=== PATIENT | male | born 1960 | race Caucasian/White ===

== ENCOUNTER 2017-01-16 09:40 | Outpatient (CLI) | payer MEDICARE ==
[2017-01-16 10:41] LABS: Blood Urea Nitrogen 6 mg/dL (9-20)
--- NOTE | 2017-01-16 12:00 | Cat Scan Report ---
CT CHEST, ABDOMEN AND PELVIS WITH CONTRAST INDICATION: Breast cancer. COMPARISON: None similar at this institution. FINDINGS: Chest, abdomen and pelvis CT performed following intravenous administration of 100 cc of Omnipaque 300. CHEST: Bilateral pulmonary metastatic masses noted, the largest approximately 8.1 x 7 x 7.2 cm in the right lower lobe medially with intrinsic heterogeneity/numerous hypodense areas as also air-filled structures. It extends from the hilum to the lung base. Small right pleural effusion also seen. Multiple left lung nodules/masses also seen, at least 5 small in the left upper lobe and the lingula measuring up to 0.9 cm, axial image 150 while the largest in the left lower lobe, just above the diaphragm is approximately 3.5 x 2.7 cm, axial image 168, series 2. Subcarinal lymph nodes measure up to 1.6 cm as on axial image 109. Few small mediastinal/pretracheal/AP window lymph nodes also noted. Largest elongated AP window lymph node is 2.9 x 0.8 cm, axial image 81. Patent central airway, though few right lower lobe bronchi medially may be obliterated. Mild right upper lobe chronic changes posteriorly with fibrosis/mild bronchiectasis, possibly postradiation. Unremarkable heart and great vessels. No pericardial effusion. Left thyroid lobe slightly more prominent than the right, though overall size within normal limits. Right axillary surgical clips with possible right mastectomy. No significant axillary lymphadenopathy. Mild distal esophageal prominence. Right hemidiaphragm mildly elevated. ABDOMEN: Liver, spleen, gallbladder, pancreas, adrenals, nonaneurysmal abdominal aorta, IVC and kidneys within normal limits. No ascites or significant adenopathy. Few indeterminate left renal hypodensities, the largest 0.9 cm inferomedially, axial image 402, series 2. Nonopacified GI tract evaluation limited, though grossly nonobstructive. Mild ascending colon stool. PELVIS: Rectosigmoid stool. Right inferolateral urinary bladder aspect asymmetrically partially extends towards the right groin as on axial image 561, series 2. Normal remainder urinary bladder, seminal vesicles and the prostate. No free fluid or significant adenopathy. Possible old, incompletely healed right sixth rib fracture laterally, axial image 138, series 2. Mild multilevel spinal degenerative changes/spurring. CONCLUSION: 1. Bilateral pulmonary metastatic masses/nodules, largest in the right lower lobe, as detailed above. Subcarinal/mediastinal lymph nodes also noted in this patient with probable right mastectomy, as described. Please correlate. 2. No abdomen or pelvic CT metastases with small right pleural fluid, distal esophageal air-filled prominence and few other incidental findings noted, as above. Thank you for the opportunity to participate in this patient's care.
== END 2017-01-16 09:41 | disposition home or self-care (01) ==
LOC: CT 09:40
PROVIDERS: ATTEND Internal Medicine Hematology
DX: C78.01 Secondary malignant neoplasm of right lung (principal); C78.02 Secondary malignant neoplasm of left lung; C50.929 Malignant neoplasm of unspecified site of unspecified male breast; R91.8 Other nonspecific abnormal finding of lung field; J90 Pleural effusion, not elsewhere classified; J98.6 Disorders of diaphragm; M47.899 Other spondylosis, site unspecified
CPT/HCPCS: 36415; 71260; 74177; 82565; 84520; Q9967

== ENCOUNTER 2017-07-08 15:53 | Emergency (ER) | payer MEDICARE ==
[2017-07-08 16:08] VITALS: BP 104/67
[2017-07-08 16:47] LABS: BUN/Creatinine Ratio 18; Blood Urea Nitrogen 16 mg/dL (9-20); Calcium 8.5 mg/dL (8.4-10.2); Hemolysis Index 3
[2017-07-08 17:05] LABS: Basophils # (Auto) 0.1 K/mm3 (0.0-0.1); Basophils % (Auto) 0.6 % (0.0-1.8); Hematocrit 38.2 % (35.5-45.6); Hemoglobin 12.1 gm/dl (11.8-15.2); Mean Corpuscular HGB Conc 32 % (32-34); Mean Corpuscular Volume 78 fl (84-94); Monocytes # (Auto) 1.4 K/mm3 (0.0-0.8); Monocytes % (Auto) 15.5 % (0.0-7.3); Platelet Count 333 K/mm3 (140-440); Red Blood Count 4.93 M/mm3 (3.65-5.03); Red Cell Distribution Width 18.6 % (13.2-15.2)
[2017-07-08 17:09] LABS: Mean Corpuscular Hemoglobin 25 pg (28-32)
--- NOTE | 2017-07-08 18:16 | XRay Report ---
FINAL REPORT PROCEDURE: XR CHEST ROUTINE 2V TECHNIQUE: PA and lateral chest radiographs were obtained. CPT 37893 HISTORY: shortness of breath COMPARISON: No prior studies are available for comparison. FINDINGS: Heart: Normal. Mediastinum/Vessels: Prominent central vessels. Lungs/Pleural space: There is a circumscribed opacity measuring up to 4 centimeters in the left lower lobe, with adjacent nodular densities measuring up to 11 millimeters. No effusion or pneumothorax is seen. Bony thorax: No acute osseous abnormality. Other: Right MediPort catheter tip is at the cavoatrial junction IMPRESSION: Left lower lobe opacities may be related to pulmonary masses or infiltrates. Recommend further evaluation with chest CT if not already performed.
[2017-07-08] MEDS ORDERED: NACL ONE (20:49)
== END 2017-07-08 21:05 | disposition left against medical advice (07) ==
LOC: ED 15:53
DX: R05 Cough (principal); R09.81 Nasal congestion; Z53.21 Procedure and treatment not carried out due to patient leaving prior to being seen by health care provider
CPT/HCPCS: 36415; 71020; 80048; 85025; 87040

== ENCOUNTER 2017-07-11 15:51 | Emergency (ER) | payer MEDICARE ==
[2017-07-11 17:55] LABS: Basophils # (Auto) 0.1 K/mm3 (0.0-0.1); Basophils % (Auto) 0.5 % (0.0-1.8); Hematocrit 37.5 % (35.5-45.6); Hemoglobin 12.3 gm/dl (11.8-15.2); Lymphocytes # (Auto) 2.9 K/mm3 (1.2-5.4); Lymphocytes % (Auto) 16.7 % (13.4-35.0); Mean Corpuscular HGB Conc 33 % (32-34); Mean Corpuscular Volume 76 fl (84-94); Monocytes # (Auto) 1.6 K/mm3 (0.0-0.8); Monocytes % (Auto) 9.1 % (0.0-7.3); Platelet Count 246 K/mm3 (140-440); Red Blood Count 4.93 M/mm3 (3.65-5.03); Red Cell Distribution Width 18.9 % (13.2-15.2)
[2017-07-11 18:07] LABS: Mean Corpuscular Hemoglobin 25 pg (28-32)
[2017-07-11 18:14] LABS: BUN/Creatinine Ratio 14; Blood Urea Nitrogen 11 mg/dL (9-20); Calcium 8.6 mg/dL (8.4-10.2); Hemolysis Index 15
[2017-07-11] MEDS ORDERED: NACL 0.9% 1000 ML 1,000 ML IV ONE (23:55)
[2017-07-12] MEDS ORDERED: NACL ONE (00:27)
[2017-07-12] MEDS ORDERED: ROCEPHIN/NS 1 GM/50 ML 1 GM/50 ML BAG IV ONE (01:47)
[2017-07-12] MEDS ORDERED: ROCEPHIN 1 GM in NACL 0.9% 20 ML IV ONE (02:00)
--- NOTE | 2017-07-12 02:00 | Emergency Department Report ---
ED Shortness of Breath HPI - General Chief Complaint: Dyspnea/Respdistress Stated Complaint: SICK Time Seen by Provider: 07/11/17 23:29 Source: patient Mode of arrival: Ambulatory Limitations: No Limitations - History of Present Illness Initial Comments: Patient with breast cancer that is metastatic to the lungs on chemotherapy. He has been treating this for over a year but for a week has been SOB with a cough. MD Complaint: shortness of breath -: Gradual, week(s) (1) Severity: moderate Pain Scale: 7 Quality: sharp Consistency: intermittent Improves With: oxygen, rest Worsens With: movement, inspiration Known History Of: other (metastatic breast cancer to the lungs.) Context: recent illness Associated Symptoms: fever, cough, sputum production Treatments Prior to Arrival: none - Related Data Previous Rx's Medication Instructions Recorded Last Taken Type Amoxicillin/Potassium Clav 1 each PO BID 20 Days #10 tablet 07/12/17 Unknown Rx [Augmentin 875-125 Tablet] Allergies Allergy/AdvReac Type Severity Reaction Status Date / Time No Known Allergies Allergy Verified 07/08/17 16:03 ED Review of Systems ROS: Stated complaint: SICK Other details as noted in HPI Constitutional: chills, fever, malaise Eyes: denies: eye pain, eye discharge, vision change ENT: denies: ear pain, throat pain Respiratory: cough, shortness of breath, SOB with exertion. denies: wheezing Cardiovascular: denies: chest pain, palpitations Endocrine: no symptoms reported Gastrointestinal: denies: abdominal pain, nausea, diarrhea Genitourinary: denies: urgency, dysuria Musculoskeletal: denies: back pain, joint swelling, arthralgia Skin: denies: rash, lesions Neurological: denies: headache, weakness, paresthesias Psychiatric: denies: anxiety, depression Hematological/Lymphatic: denies: easy bleeding, easy bruising ED Past Medical Hx - Past Medical History Previous Medical History?: Yes Hx of Cancer: Yes - Surgical History Additional Surgical History: cancer removed from chest - Social History Smoking Status: Never Smoker Substance Use Type: None - Medications Home Medications: Home Medications Medication Instructions Recorded Confirmed Last Taken Type Amoxicillin/Potassium Clav 1 each PO BID 20 Days #10 tablet 07/12/17 Unknown Rx [Augmentin 875-125 Tablet] ED Physical Exam - General Limitations: No Limitations General appearance: alert, in no apparent distress - Head Head exam: Present: atraumatic, normocephalic - Eye Eye exam: Present: normal appearance - ENT ENT exam: Present: mucous membranes moist - Neck Neck exam: Present: normal inspection - Respiratory Respiratory exam: Present: normal lung sounds bilaterally, rhonchi (Left lower lobe). Absent: respiratory distress - Cardiovascular Cardiovascular Exam: Present: regular rate, normal rhythm. Absent: systolic murmur, diastolic murmur, rubs, gallop - GI/Abdominal GI/Abdominal exam: Present: soft, normal bowel sounds - Rectal Rectal exam: Present: deferred - Extremities Exam Extremities exam: Present: normal inspection - Back Exam Back exam: Present: normal inspection - Neurological Exam Neurological exam: Present: alert, oriented X3 - Psychiatric Psychiatric exam: Present: normal affect, normal mood - Skin Skin exam: Present: warm, dry, intact, normal color. Absent: rash ED Course Vital Signs 07/11/17 07/11/17 07/12/17 17:19 19:37 00:19 Temperature 98.4 F 99.6 F Pulse Rate 109 H Respiratory 20 18 Rate Blood Pressure 102/71 Blood Pressure [Left] O2 Sat by Pulse 95 Oximetry 07/12/17 00:24 Temperature 98.4 F Pulse Rate 90 Respiratory 18 Rate Blood Pressure Blood Pressure 109/65 [Left] O2 Sat by Pulse Oximetry ED Medical Decision Making - Lab Data Result diagrams: 07/11/17 17:42 07/11/17 17:42 Elevated WBC but normal lactic acid. Hyponatremia - EKG Data EKG shows normal: sinus rhythm, axis (normal), ST-T waves (normal) Rate: normal - EKG Data Interpretation: no acute changes, normal EKG - Radiology Data Radiology results: report reviewed Patient with RLL 8.5 x 6.7 cm mass with multilobar mets and mediastinal nova mets. LLL mass 4 x 3 cm. No pleural effusion. CXR appears to have infiltrates and CT appears to have jt metastatic infiltrates. - Medical Decision Making Patient appears to have pneumonia with WBC and clinically. My review of CT appears to show some consolidation around the metastatic lesion greater on the right than the left. Otherwise patient is stable and has remained afebrile with an oxgyen saturation on RA of 97%. Not tachycardia and has a normal lactic acid. Patient to get IV rocephin here and will send home on augmentin. He reports he has not been on antibiotics. Critical care attestation.: If time is entered above; I have spent that time in minutes in the direct care of this critically ill patient, excluding procedure time. ED Disposition Clinical Impression: RLL pneumonia Qualifiers: Pneumonia type: due to unspecified organism Qualified Code(s): J18.1 - Lobar pneumonia, unspecified organism Metastatic cancer to lung Qualifiers: Laterality: unspecified laterality Qualified Code(s): C78.00 - Secondary malignant neoplasm of unspecified lung Disposition: DC- TO HOME OR SELFCARE Is pt being admited?: No Does the pt Need Aspirin: No Condition: Fair Instructions: Bacterial Pneumonia (ED) Prescriptions: Amoxicillin/Potassium Clav [Augmentin 875-125 Tablet] 1 each PO BID 20 Days #10 tablet Referrals: REILLY JOHNSON MD [Staff Physician] - 3-5 Days Time of Disposition: 02:10
[2017-07-12] MEDS ORDERED: NACL 0.9% 50 ML ONE (02:17)
[2017-07-12] MEDS ORDERED: FLUSH HEPARIN IV ONE ×2 (02:50)
[2017-07-12 02:59] VITALS: BP 116/63
--- NOTE | 2017-07-12 03:40 | Cat Scan Report ---
FINAL REPORT EXAM: CT CHEST W CON HISTORY: dyspnea hx. lung ca. COMPARISON: CT of the chest from May 2017. TECHNIQUE: Contiguous axial images were obtained. Additional sagittal and coronal reformatted images were obtained. Max intensity projection images. 100 cc Omnipaque 300. FINDINGS: Heart normal in size. Thoracic aorta normal in caliber. No dissection. No pulmonary embolus. There are enlarged intrathoracic lymph nodes likely metastatic. For example there is a right paratracheal lymph node measuring 12 x 10 millimeters. No enlarged axillary lymph nodes. Right-sided Port-A-Cath is in place. On prior exam, this lymph node measures 11 x 10 millimeters. There borderline enlarged left paratracheal lymph nodes which have increased in size from prior study. For example there is a left paratracheal lymph node measuring 13 x 6 millimeters (series 3, image 41). On prior exam this same lymph node measured 9 by 5 millimeters. No enlarged axillary lymph nodes. There is a large mass centered at the medial margin of the right lower lobe extending towards the right hilar region. Greatest axial dimension this measures approximately 9 x 7.5 centimeters. On prior study this measured 8.6 by 7.2 centimeters. Soft tissue opacifies the right lower lobe bronchus. There punctate nodules in the right lower lobe and patchy nodular densities appear progressed from prior study. There is a lobulated soft tissue mass at the lateral margin of the left lower lobe measuring 3.8 x 3.0 centimeters in axial dimension on today's exam, previously 3.8 by 3.0 centimeters. Additional smaller nodular densities are scattered throughout the lungs for example at the lateral margin of the lingula, there is a 10 by 8 millimeter subpleural nodule, previously measuring 9 x 9 millimeters. These smaller nodules appear to be grossly stable in size compared to prior exam. Tiny hiatal hernia. No adrenal mass. Bony thorax is grossly intact. No suspicious sclerotic or lytic lesion. Remote right 6th rib fracture. Visualized upper abdomen is unremarkable. IMPRESSION: No pulmonary embolus. Dense airspace consolidation right lower lobe appears slightly increased in size from prior study with new punctate areas of nodularity its periphery concerning for progression of neoplastic disease. Additionally, there are borderline and mildly enlarged intrathoracic lymph nodes stable slightly increased in size from prior study also concerning for progression of neoplastic disease. Other nodules in the left lung appear grossly stable from prior exam.
--- NOTE | 2017-07-12 09:14 | XRay Report ---
FINAL REPORT EXAM: XR CHEST ROUTINE 2V HISTORY: Shortness of breath TECHNIQUE: Chest, two views PRIORS: 07/08/2017 FINDINGS: There is an unchanged right-sided Port-A-Cath. There is no cardiomegaly seen. There is unchanged mild elevation of the right hemidiaphragm. There is no vascular congestion. There is a mass in the left lower lobe which is unchanged. There are several nodules in the lower left lung which are unchanged. Its IMPRESSION: Unchanged mass and nodules in the left lower lobe.
== END 2017-07-12 03:01 | disposition home or self-care (01) ==
LOC: ED 15:51
DX: J18.1 Lobar pneumonia, unspecified organism (principal); C78.00 Secondary malignant neoplasm of unspecified lung; Z98.890 Other specified postprocedural states
CPT/HCPCS: 36415; 71046; 71260; 80048; 82140; 83880; 85025; 87400; 93005; 93010; 96361; 96374; 96375; 99284; J0696; J1642; J7030; Q9967

== ENCOUNTER 2017-10-12 07:56 | Outpatient (CLI) | payer MEDICARE ==
--- NOTE | 2017-10-12 14:12 | PET Report ---
PET/CT:10/12/17 07:56:00 CLINICAL: Breast cancer restaging. 57-year-old with history of right breast cancer and pulmonary metastatic disease. RADIOPHARMACEUTICAL: 13.786mCi F18-FDG. COMPARISON: CT Chest 07/12/17 , CT CAP 05/19/17 and 01/16/17 TECHNIQUE- Following intravenous injection of F-18 FDG and an approximately 60 minute uptake period, CT and PET images from the mid skull to the upper thighs were acquired with the patient in the fasted state. No contrast was administered. The CT protocol used for this PET CT study is designed for attenuation correction and anatomic localization of PET abnormalities. This pipe recovery specialist CT is not desired to produce and cannot replace, [id number]-[id number]-art diagnostic CT scans with specific imaging protocols for different body parts and indications. Plasma glucose at the time of this test: 87g/dl. The standardized uptake values (SUV) are normalized to patient body weight and indicate the highest activity concentration (SUV max) in a given disease site. FINDINGS: Brain--Physiologic FDG uptake in the visualized regions of the brain. Neck--Physiologic FDG uptake in mucosal structures.. Chest--Physiologic FDG uptake in mediastinal blood pool and myocardium. Lungs--An FDG avid right lower lobe lung mass measures 8.5 x 7.5 cm. Heterogeneous FDG uptake with SUV 6.7. An irregular FDG avid left lower lobe lung mass measures 3.8 x 3.3 cm with SUV 4.9. Several bilateral subcentimeter non-FDG avid upper lobe lung nodules and 1.3 cm and 1 cm non-FDG avid left upper lobe nodules. Pleura/pericardium--No abnormal uptake. Thoracic nodes--Several non-FDG avid mediastinal lymph nodes and no FDG avid lymphadenopathy. Hepatobiliary--No abnormal uptake. Liver background SUV mean, as a reference for comparing FDG studies, is 2.7 . No liver mass. Spleen--No abnormal uptake. Pancreas--No abnormal uptake. Adrenal Glands--No abnormal uptake. Kidneys/Ureters/Bladder--No abnormal uptake. Abdominopelvic Nodes--No abnormal uptake. Bowel/Peritoneum/Mesentery--No abnormal uptake. Pelvic organs--No abnormal uptake. Bones/Soft Tissues--No abnormal uptake. No suspicious bone lesions. Other findings: It appears that a right mastectomy has been performed. No breast or chest wall mass. Right Fljfqj-e-Mtob tip is in the right atrium. IMPRESSION- 1. Multiple lobar bilateral pulmonary metastasis with a dominant 8.5 cm right lower lobe lung mass. Lung masses are not significantly changed in size compared to the last CT Chest. 2.No evidence of nova, hepatic or skeletal metastasis.
== END 2017-10-12 07:57 | disposition home or self-care (01) ==
LOC: PET 07:56
PROVIDERS: ATTEND Internal Medicine Hematology
DX: C78.02 Secondary malignant neoplasm of left lung (principal); C78.01 Secondary malignant neoplasm of right lung; Z85.3 Personal history of malignant neoplasm of breast; Z90.11 Acquired absence of right breast and nipple; R79.89 Other specified abnormal findings of blood chemistry
CPT/HCPCS: 78815; 82962; A9552

== ENCOUNTER 2018-04-03 09:02 | Outpatient (CLI) | payer MEDICARE ==
--- NOTE | 2018-04-03 13:40 | Nuclear Medicine Report ---
BONE SCAN: History: Malignant neoplasm of right male breast. Comparison: CT chest abdomen and pelvis with contrast performed the same day. There is focal increased uptake in the lateral right sixth rib which corresponds to a healing fracture on CT performed the same day. There is also ill-defined uptake at the right lung base which correlates with an area of bronchiectasis and consolidation in the right lower lobe. This appears to represent inflammatory uptake. No focal abnormal radiotracer uptake is identified throughout the skeletal system concerning for metastatic disease. IMPRESSION: No evidence for metastatic disease to the bones. Healing right sixth rib fracture. Inflammatory uptake in the right lower lobe as described.
--- NOTE | 2018-04-03 22:50 | Cat Scan Report ---
FINAL REPORT PROCEDURE: CT CHEST W CON TECHNIQUE: Computerized axial tomography of the chest was performed during the IV injection of iodinated nonionic contrast. HISTORY: MALIGNANT NEOPLASM OF RIGHT MALE BREAST COMPARISON: 07/12/2017 TECHNICAL QUALITY: Satisfactory. FINDINGS: An inhomogeneously enhancing lesion of right lower lobe extending to right hilar region with extensive scarring of the surrounding lung is again identified and appears to have decreased in size in the interval now measuring 5.9 x 6.7 centimeters in AP and transverse dimensions. Extensive bronchiectatic changes are noted involving the right lower lobe. Mild degree bronchiectatic changes are also noted involving right middle lobe. There is overall decreased volume of the right lung with shift of mediastinum to the right. Multiple mass lesions involving left lung are again noted largest measuring 3.9 x 2.6 centimeters located in the anterior segment left lower lobe. There is mild degree loculated right pleural effusion. Vertebral height is normal. Multiple mediastinal lymph nodes are noted measuring less than 10 millimeters in short axis. IMPRESSION: Multiple left lung mass lesions are stable and unchanged. Interval decrease in the size of the right lower lobe in homogeneously enhancing lesion. There is extensive surrounding parenchymal scarring most likely secondary to any prior radiation. Mild degree loculated right pleural effusion. Interval decrease in the size of mediastinal lymph nodes which no measure less than 10 millimeters in short axis.
--- NOTE | 2018-04-03 22:58 | Cat Scan Report ---
FINAL REPORT PROCEDURE: CT ABDOMEN PELVIS W CON TECHNIQUE: Computerized axial tomography of the abdomen and pelvis was performed after the IV injection of iodinated nonionic contrast. HISTORY: MALIGNANT NEOPLASM OF RIGHT MALE BREAST COMPARISON: No prior studies are available for comparison. FINDINGS: Liver, spleen, and adrenal glands are within normal limits. Small cystic lesions measuring 5 and 9 millimeters are noted in the midpole and lower pole left kidney most likely representing simple cysts. Right kidney is unremarkable. There is no obstructive uropathy. Urinary bladder is unremarkable. Aorta is of normal caliber. There is no free fluid or free air. Gallbladder is within normal limits. Small bowel loops are unremarkable. There is moderate degree residual stool. Appendix is not distinctly visualized. There are no inflammatory changes in the right lower quadrant. There is no lymphadenopathy. Vertebral height is normal. Mild degree prostatomegaly is identified. IMPRESSION: No evidence of metastatic disease Mild degree prostatomegaly
== END 2018-04-03 09:03 | disposition home or self-care (01) ==
LOC: CT 09:02
PROVIDERS: ATTEND Internal Medicine Hematology
DX: C50.921 Malignant neoplasm of unspecified site of right male breast (principal); S22.31XD Fracture of one rib, right side, subsequent encounter for fracture with routine healing; R91.8 Other nonspecific abnormal finding of lung field; J90 Pleural effusion, not elsewhere classified; X58.XXXD Exposure to other specified factors, subsequent encounter
CPT/HCPCS: 71260; 74177; 78306; A9503; Q9967

== ENCOUNTER 2018-07-06 10:11 | Outpatient (CLI) | payer MEDICARE ==
[2018-07-06 10:59] LABS: Blood Urea Nitrogen 7 mg/dL (9-20)
--- NOTE | 2018-07-06 17:06 | Cat Scan Report ---
FINAL REPORT EXAM: CT ABDOMEN PELVIS W CON HISTORY: MALIGNANT NEOPLASM OF MALE BREAST TECHNIQUE: CT of the abdomen and pelvis was performed after the administration of intravenous contra st. Subsequently, CT of the abdomen and pelvis was performed in the delayed phase. Reconstructions were included in the coronal and sagittal planes. PRIORS: CT of the abdomen and pelvis from 04/03/2018. FINDINGS: Lower thorax: Small right pleural effusion is again seen. The right lower lobe mass lesion appears de creased in size measuring 6.5 x 4.9 centimeters, previously 7.6 x 5.6 centimeters. The dominant left lower lobe mass is unchanged in size measuring 4.1 x 2.6 centimeters. The other left lung nodules [place] ear grossly similar. A central line is present with the tip lying just within the right atrium. The v isualized portions of the heart are normal. Liver: The liver is normal in attenuation. No intrahepatic biliary duct dilation. No focal hepatic le sions. Gallbladder/ biliary system: No cholelithiasis. The common bile duct appears nondilated. Spleen: No splenic lesions are seen. Pancreas: No pancreatic lesions are seen. No pancreatic duct dilation. Kidneys: Probable simple left renal cyst is seen. No right renal lesions. No hydronephrosis. No renal or ureteral calcifications. Adrenal glands: No adrenal masses. Vasculature: The abdominal aorta is nondilated. Lymph nodes: No enlarged lymph nodes are seen in the abdomen or pelvis. Bowel, mesentery, peritoneum: No bowel obstruction. No free fluid or free air. The appendix is not de finitively seen. No colonic diverticulosis. No bowel wall thickening. Urinary bladder: No filling defects are seen. Pelvis: Normal anatomy is noted. No masses. Abdominal wall: Tiny fat containing umbilical hernia is seen. Bones: No acute or chronic osseous finding. IMPRESSION: 1. No acute intra-abdominal or intrapelvic process. No evidence of metastatic disease to the abdomen or pelvis. 2. Decrease in size of the right lower lobe mass. Unchanged left lung nodules and masses. 3. Small right pleural effusion.
--- NOTE | 2018-07-06 18:31 | Cat Scan Report ---
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 Multiplanar reformats are performed on the acquisition scanner. Comparison: 04/03/2018 CT chest demonstrating"An inhomogeneously enhancing lesion of right lower lobe extending to right hilar region with extensive scarring of the surrounding lung is again identified and appears to have decreased in size in the interval now measuring 5.9 x 6.7 centimeters in AP and t ransverse dimensions. Extensive bronchiectatic changes are noted involving the right lower lobe. Mild degree bronchiectatic changes are also noted involving right middle lobe. There is overall decreased volume of the right lung with shift of mediastinum to the right. Multiple mass lesions involving lef t lung are again noted largest measuring 3.9 x 2.6 centimeters located in the anterior segment left l ower lobe. There is mild degree loculated right pleural effusion. Vertebral height is normal. Multipl e mediastinal lymph nodes are noted measuring less than 10 millimeters in short axis, additional prio r 07/12/2017 demonstrating dense airspace consolidation right lower lobe increased from 05/19/2017 wi th new punctate areas of nodularity in its periphery concerning for progression of neoplastic disease , borderline mildly enlarged intrathoracic lymph nodes, slightly increased in size, stable left lung nodules otherwise. FINDINGS: There is persistent dense consolidation of the right lower lobe with severe traction bronchiectasis. There has been interval cavitation laterally measuring 5.5 x 2.8 centimeters of an area of consolidat ed lung. The new area of cavitation is seen best on image number 73. There is peripheral scarring in the right lung and volume loss. In the left upper lobe, there is a 5 millimeter well-circumscribed nodule image number 21, slightly l arger than on the previous exam. There is a ground-glass opacity on image number 36, not significantly changed measuring 7 millimeters . There is a perifissural nodule on image number 54 measuring 9 millimeters, previously 8 millimeters. There is an inferior lingular nodule measuring 12 millimeters on image 71,, previously 9 millimeters and. Slightly denser on the current exam. The left lower lobe nodular mass measures 3.6 x 2.7 centimeters, not significantly changed from the p revious on the axial images but larger in the transverse diameter and overall bulk on the coronal migel ges. There is left lingular inferior basal nodularity image number 81 measuring 11 millimeters, not signif icantly changed compared with previous. There is 3 millimeter nodule in the left lateral lung base unchanged. There are small numerous mediastinal lymph nodes in the AP window, left paratracheal and right paratr acheal regions not significantly changed. Largest AP window lymph node measures 10 millimeter short a xis, not significantly changed. The plaque-like pre-vascular lymph node measures 6 millimeter short a xis previously and 5 millimeters currently. Aorta is not aneurysmal. Pulmonary arteries have normal course and caliber without evidence for intraluminal filling defect. T he heterogeneous consolidation in the right lower lobe does not show evidence for filling defect. The re is also normal enhancement throughout the left lower lobe mass. There is trace right pleural effusion as previously. The imaged upper abdomen shows collapse of the gastric fundus, unremarkable otherwise. Degenerative wedging of the dorsal vertebral bodies. No discrete focal lytic or blastic bony lesions. Free chemo port is present. Right chest wall soft tissues are thinner than the left. Right axillary l ymph node dissection clips are present. No internal mammary adenopathy is identified. There is mild soft tissue reticulation of the right ant erior chest wall. IMPRESSION: Right lower lobe consolidative mass has cavitated laterally since the prior exam. The overall region of heterogeneous masslike posterior right lower lobe consolidation 5.1 x 6.1 centimeters, smaller th an previous because of the cavitation. This may represent a positive response to treatment or cavitat ion of necrotic tumor. The left pulmonary nodules are stable or slightly larger from the previous. Stable mediastinal lymph nodes. Persistent right pleural effusion and mild stable pleural rind posteriorly. No acute pulmonary embolus. No infra diaphragmatic tumor identified. If has not been performed, recommend CT PET.
== END 2018-07-06 10:12 | disposition home or self-care (01) ==
LOC: CT 10:11
PROVIDERS: ATTEND Internal Medicine Hematology
DX: C50.929 Malignant neoplasm of unspecified site of unspecified male breast (principal); J90 Pleural effusion, not elsewhere classified; R91.8 Other nonspecific abnormal finding of lung field; K42.9 Umbilical hernia without obstruction or gangrene; J47.9 Bronchiectasis, uncomplicated; J98.4 Other disorders of lung
CPT/HCPCS: 36415; 71260; 74177; 82565; 84520; Q9967

== ENCOUNTER 2020-01-22 08:15 | Outpatient (CLI) | payer MEDICARE ==
[2020-01-22 09:29] LABS: Blood Urea Nitrogen 9 mg/dL (9-20)
--- NOTE | 2020-01-22 10:54 | Cat Scan Report ---
CT chest w con INDICATION: C50.929Malignant neoplasm of unspecified site of unspecified male. TECHNIQUE: All CT scans at this location are performed using CT dose reduction for ALARA by means of automated e xposure control. COMPARISON: 09/27/2019 FINDINGS: Right lower lobe mass and associated consolidation persists without significant interval change. This mass extends directly into the posterior mediastinum and inferior right hilum, but I do not see sepa rate mediastinal adenopathy. Images through the upper abdomen show normal adrenal glands. No obvious liver masses. Pleural-based mass in the left lower lobe is slightly smaller and more defects. It now measures 3.6 c m maximum diameter. Other nodular densities in the left lung are unchanged and may represent areas of scarring and subpleural lymph node. No new lung lesions. No appreciable skeletal metastases. IMPRESSION: 1. Large mass with associated consolidation in the right lower lobe has not changed significantly in the four-month interval. 2. Left basilar nodule/mass is slightly smaller but more dense. 3. No new disease. Signer Name: Wali Mckeon MD Signed: 01/22/2020 10:50 AM Workstation Name: [id number]
--- NOTE | 2020-01-22 11:29 | Cat Scan Report ---
CT abdomen pelvis w con INDICATION: MAIN. TECHNIQUE: All CT scans at this location are performed using CT dose reduction for ALARA by means of automated e xposure control. COMPARISON: 09/27/2019 FINDINGS: Liver, gallbladder, spleen, pancreas, kidneys and adrenals are negative. Abdominal aorta is normal in size. No adenopathy. Pelvis Urinary bladder is mostly collapsed but appears unremarkable. Mild sigmoid diverticulosis but no free fluid or inflammation. No pelvic adenopathy. No significant skeletal lesions. IMPRESSION: 1. No evidence of metastatic disease or other acute abnormality in the abdomen/pelvis. Signer Name: Wali Mckeon MD Signed: 01/22/2020 11:24 AM Workstation Name: [id number]
== END 2020-01-22 08:16 | disposition home or self-care (01) ==
LOC: CT 08:15
PROVIDERS: ATTEND Internal Medicine Hematology
DX: K57.30 Diverticulosis of large intestine without perforation or abscess without bleeding (principal); R91.8 Other nonspecific abnormal finding of lung field; R91.1 Solitary pulmonary nodule; C50.929 Malignant neoplasm of unspecified site of unspecified male breast
CPT/HCPCS: 36415; 71260; 74177; 82565; 84520; Q9967